=== PATIENT | male | born 1985 | race Caucasian/White ===

== ENCOUNTER 2023-07-29 13:56 | Emergency (ER) | payer OTHER, SELFPAY ==
[2023-07-29 14:05] VITALS: BP 165/98; PULSE 118; RESP 24; TEMP 37.8; O2SAT 100
--- NOTE | 2023-07-29 14:45 | ED.SKABFB ---
HPI - Skin/Abscess/Foreign Bdy General Chief complaint: Skin/Abscess/Foreign Body Stated complaint: Allergic Recartion/Chest Pain Time Seen by Provider: 07/29/23 14:53 Source: patient, family and RN notes reviewed History of Present Illness HPI narrative: 38 yo M presents to urgent care with complaints of lower lip pain and swelling. Pt states he was seen 3 days ago for flash gray in his eyes and lower lip. Pt is a fitter welder. Pt was seen at an ER and given eye gtts, tramadol, and Benadryl. Pt was seen at 2 other ERs yesterday and this morning for chest muscle spasms and states he has not had any relief. Pt's friend at side, states pt's lip has significantly gotten bigger today. Pt presents with pain with deep inhalation in his left upper chest and lower lip pain. Related Data Home Medications Medication Instructions Recorded Confirmed ciprofloxacin HCl 0.3 % eye drops drp 07/29/23 erythromycin 5 mg/gram (0.5 %) eye 07/29/23 ointment ketorolac 10 mg tablet mg 07/29/23 tobramycin 0.3 % eye drops drp 07/29/23 Allergies Allergy/AdvReac Type Severity Reaction Status Date / Time No Known Allergies Allergy Verified 07/29/23 14:35 Review of Systems Review of Systems: CONSTITUTIONAL: Denies fever, chills, or sweats. EYES: Denies visual changes, redness, or discharge. ENT: Denies otalgia and sore throat CARDIOVASCULAR: Left upper chest muscle spasms RESPIRATORY: SOB due to painful deep breaths GASTROINTESTINAL: Denies abdominal pain, nausea, vomiting, or diarrhea. GENITOURINARY: Denies dysuria or hematuria. SKIN: Denies rash or itching. MUSCULOSKELETAL: Denies back pain, joint pain, or myalgia. NEUROLOGIC: Denies headache, numbness, or weakness. Pertinent positives per HPI. PMFSH Comments At the time of my signature, I reviewed and agree with the nursing past medical, surgical, social, and family history. There is no relevant family history pertinent to the patient complaint. Exam Narrative: GENERAL: This is a well-nourished, well-developed patient, in no apparent distress. HEAD: normocephalic, atraumatic. EYES: Sclera clear/white. Vision is grossly intact. MOUTH: lower lip edematous, indurated, tender, erythremic, with exudate noted in inner lower lip EARS: External ears normal, auditory canals clear and without drainage, TMs normal without perforation. Hearing grossly intact. NOSE: External nose normal with no obvious nasal discharge, nares without redness, no rhinorrhea. NECK: Neck supple, non-tender without lymphadenopathy, masses or thyromegaly. CARDIOVASCULAR: Tachycardic RESPIRATORY: Clear but decreased, possibly due to lack of deep breathing during assessment. Breath sounds equal bilaterally. No wheezes, rales, or rhonchi. SKIN: warm, intact with no suspicious lesions or rash, good texture and turgor. NEURO: awake, alert, and oriented to person, place and time. There were no obvious focal neurologic abnormalities. Course Course Level of Care: Express Care Visit Vital Signs Vital signs: reviewed MDM - Skin/Abscess/Foreign Bdy MDM Narrative Medical decision making narrative: Discussed with pt and friend the need for Plastic's evaluation and possible IV Abx. Pt agrees to be transferred to [facility]. Spoke to Silas WALKER at [facility] ED who accepts pt. Pt going by private vehicle. Differential Diagnosis Differential diagnosis: Likely abscess of skin or subcutaneous tissue, allergic reaction to drug, cellulitis and other (burn) Critical Care Time Critical Care Time Critical Care Time: No Discharge Plan Discharge Clinical Impression: Abscess of skin or subcutaneous tissue Patient Disposition: Acute Care Hospital Condition: Stable Prescriptions: No Action ketorolac 10 mg tablet ciprofloxacin HCl 0.3 % drops erythromycin 5 mg/gram (0.5 %) ointment tobramycin 0.3 % drops Follow-up/Referrals: PHYSICIAN,ICE RINK ATTENDANT [Prim
== END 2023-07-29 15:00 | disposition short-term general hospital (02) ==
PROVIDERS: Emergency Provider Nurse Practitioner Family
DX: K13.0 Diseases of lips (principal)
CPT/HCPCS: 99212; G0463

== ENCOUNTER 2023-07-29 15:26 | Inpatient (IN) | payer OTHER, SELFPAY ==
[2023-07-29] VITALS (12 sets, daily range): BP systolic 139–158; BP diastolic 79–102; PULSE 110–121; RESP 18–39; TEMP 37.4–37.8; O2SAT 94–100
--- NOTE | ~2023-07-29 | CT_ITS ---
EXAMINATION: CT facial bones w con DATE: 07/29/2023 17:55 INDICATION: Lip abscess TECHNIQUE: Computed tomography (CT) of the facial bones and maxillofacial region was performed with 1 00 mL Omnipaque-350 intravenous contrast. Coronal reconstructions were obtained. Automated exposure c ontrol and iterative reconstruction technique were employed. The dose-length product was 394.12 mGy-c m. COMPARISON: None. FINDINGS: Bone alignment is normal. No fractures. Large dental caries with periapical abscess at the right maxi llary first molar with minimal associated mucosal thickening at the floor of the right maxillary sinu s. Additional dental caries involving the bilateral second and third mandibular molars in the bilater al third and left second mandibular molars in the left second mandibular bicuspids. Additional mild m ucosal thickening the posterior left ethmoid sinus. Bilateral middle ear cavities and visualized port ions of the mastoid air cells are clear. Orbits are normal. There is prominent soft tissue swelling a nd subcutaneous edema involving the lower lip and jaw. There is a region of decreased attenuation wit h lobular margins centered at the midline of the lower lip suggesting a region of phlegmonous change but without a well-defined enhancing peripheral wall to suggest a more organized abscess. The region of phlegmonous change measures approximately 3.3 cm left to right, 2.3 cm AP and 2.0 cm craniocaudall y. Likely reactive left submandibular lymphadenopathy. IMPRESSION: 1. Extensive cellulitis about the jaw and lower lip with 3.3 x 2.3 x 2.0 cm region of phlegmonous you nge at the midline of the lower lip but without a well-defined peripheral wall to suggest a more orga nized abscess. 2. Extensive dental disease. Reviewed, dictated and finalized at location A. LING MACHINE OPERATOR IMPRESSION: 1. Extensive cellulitis about the jaw and lower lip with 3.3 x 2.3 x 2.0 cm reg ion of phlegmonous change at the midline of the lower lip but without a well-de fined peripheral wall to suggest a more organized abscess. 2. Extensive dental disease.
[2023-07-29 16:09] LABS: Basophils Absolute Auto 0.1 K/mm3 (0.0-0.1); Basophils Percent Auto 0.3 % (0.2-1.2); Eosinophils Percent Auto 0.2 % (0-4.4); Hematocrit 39.7 % (42.0-52.0); Hemoglobin 12.7 g/dL (14.0-18.0); Immature Granulocyte Absolute 0.16 K/mm3 (0.00-0.031); Immature Granulocyte Percent A 0.7 % (0-0.5); Lymphocytes Absolute Auto 2.12 K/mm3 (0.9-3.2); Lymphocytes Percent Auto 9.6 % (18.3-44.2); Mean Corpuscular Hemoglobin 30.5 pg (26-34); Mean Corpuscular Volume 95.2 fl (80-100); Mean Platelet Volume 8.7 fl (7.4-10.4); Monocytes Percent Auto 8.9 % (2.6-8.5); Neutrophils Absolute Auto 17.8 K/mm3 (1.3-6.7); Neutrophils Percent Auto 80.3 % (45.5-73.1); Platelet Count Result 306 k/mm3 (150-375); Red Blood Count 4.17 M/mm3 (4.6-6.20); Red Cell Distribution Width 13.2 % (11.5-14.5); White Blood Count 22.1 K/mm3 (4.5-10.0)
[2023-07-29 16:18] LABS: Lactic Acid Reflex 1.9 mmol/L (0.7-2.0)
[2023-07-29 16:26] LABS: Alanine Aminotransferase 67 U/L (6-50); Albumin Level 4.7 g/dL (3.5-5.1); Alkaline Phosphatase 109 U/L (38-126); Anion Gap 13 mmol/L (8-16); Aspartate Amino Transferase 38 U/L (17-59); Bilirubin,Total 1.3 mg/dL (0.2-1.3); Blood Urea Nitrogen 9 mg/dL (9-20); Calcium 9.5 mg/dL (8.4-10.2); Carbon Dioxide 26 mmol/L (22-30); Chloride 96 mmol/L (98-107); Estimated CRCL calculation 129 ml/min; Estimated Glomerular Filt Rate > 60; Glucose 131 mg/dL (65-110); Sodium 135 mmol/L (137-145)
[2023-07-29 16:33] LABS: CRP 21.3 mg/dL (<1.0)
[2023-07-29] MEDS: SODIUM CHLORIDE 0.9% IV 1,000 ML 999 ML IV CONT ×2 (17:24→18:26)
[2023-07-29] MEDS: MORPHINE SULFATE (*CRX) 4 MG/ML INJ IV PUSH (17:25)
[2023-07-29] MEDS: ONDANSETRON INJ 4 MG/2 ML VIAL IV PUSH (17:25)
--- NOTE | 2023-07-29 17:41 | ED.GENADULT ---
HPI - General Adult General Chief complaint: Skin/Abscess/Foreign Body Stated complaint: lip abscess Time Seen by Provider: 07/29/23 17:11 Source: patient Mode of arrival: ambulatory Limitations: no limitations History of Present Illness HPI narrative: this is a 38-year-old male who presents to the ED with chief complaint of left lower Lip swelling for the past week. he was referred over from urgent care for possible abscess. He knows that he had a flash burn welding injury to the eye recently but no specific injury to the mouth. States he was seen multiple times for the swelling but was never given any antibiotics. Today he states the pain is drastically decreased ankle swelling spreading to the chin and face. States he has had a fever. Denies trouble swallowing or trismus or drooling. Admits to meth use 2 weeks ago but denies IV drug abuse Related Data Home Medications Medication Instructions Recorded Confirmed ciprofloxacin HCl 0.3 % eye drops drp 07/29/23 erythromycin 5 mg/gram (0.5 %) eye 07/29/23 ointment ketorolac 10 mg tablet mg 07/29/23 tobramycin 0.3 % eye drops drp 07/29/23 Allergies Allergy/AdvReac Type Severity Reaction Status Date / Time No Known Allergies Allergy Verified 07/29/23 14:35 Review of Systems Review of Systems: All systems as dictated in HPI Exam Narrative: GENERAL: appears in pain. Diaphoretic. HEAD: Normocephalic, atraumatic. EYES: PERRLA and EOMI. ENT: Nares clear, no rhinorrhea or epistaxis. Mucous membranes moist. Oropharynx without tonsillar hypertrophy exudate or other lesions. NECK: Supple. No adenopathy or masses. CHEST: No respiratory distress. Clear to auscultation. No wheezes rales or rhonchi HEART: Tachycardic rate and regular rhythm. No murmur heard. Normal peripheral pulses. ABDOMEN: Soft, nontender, nondistended, normal active bowel sounds. MSK: Normal range of motion. No edema. SKIN: Warm, dry, no rash. NEURO: Alert and oriented x3. No focal deficits. PSYCH: Normal mood and affect. Course Course Emergency Course: Consult [id number]: Spoke with Dr. Collins (Plastic surgery), recommends starting broad spectrum abx and he will see the patient tomorrow. Vital Signs Vital signs: Vital Signs Temperature 99.4 F 07/29/23 15:34 Pulse Rate 120 H 07/29/23 15:34 Respiratory Rate 18 07/29/23 15:34 Blood Pressure 145/102 H 07/29/23 15:34 Pulse Oximetry 100 07/29/23 15:34 Temperature 99.4 F 07/29/23 15:34 Pulse Rate 117 H 07/29/23 18:31 Respiratory Rate 26 H 07/29/23 18:31 Blood Pressure 152/101 H 07/29/23 18:31 Pulse Oximetry 100 07/29/23 18:31 Medical Decision Making MDM Narrative Medical decision making narrative: this is a 38-year-old male who presents to the ED with chief complaint of left lower lip swelling for the past week. Vitals upon arrival showed tachycardia with elevated temperature but blood pressures are stable. He is a drug user. Exam shows marked swelling, erythema and tenderness to the lower lip with swelling to the chin and left cheek as well. THere is slight drainage to the mucosa. WOund culture. sent. he is septic so sepsis protocol ordered. Labwork shows WBC 22.1, CRP 21, however lactic is normal. BLood culture sent as well. CT facial:1. Extensive cellulitis about the jaw and lower lip with 3.3 x 2.3 x 2.0 cm region of phlegmonous change at the midline of the lower lip but without a well-defined peripheral wall to suggest a more organized abscess. 2. Extensive dental disease. . Discussed with Dr. Collins (plastics) who will consult on the patient. Spoke with Dr. Good (hospitalist): recommends admission to med/surg. VAnco, zosyn, and fluids given here. Pain and nausea medications given as well. HR is improving upon admission and patient remains with stable BP. He is agreeable with the plan for admission. Vital Signs Vital Signs: Vital Signs Temperatu
[2023-07-29] MEDS: PIPERACILLN/TAZ 3.375GM/NS50ML 3.375 GM/50 ML BAG IVPB ×2 (18:07→23:35)
[2023-07-29] MEDS: VANCOMYCIN 1,250 MG/NS 250 ML 1,250 MG/250 ML BAG 166.67 MG IVPB (18:26)
[2023-07-29] MEDS: HYDROmorphone HCL INJ (*CRX) 1 MG/ML SYR 0.5 MG IV PUSH ×2 (18:46→23:35)
--- NOTE | 2023-07-29 19:07 | PC.NURSE ---
Assumed care of pt from RAFAEL Reid at this time.
--- NOTE | 2023-07-29 19:39 | PM.IMHP ---
H&P: HPI History of Present Illness Date/Time: 07/29/23 19:39 Chief Complaint: Lip infection Narrative: This 38-year-old male patient with no known significant past medical history related to today's admitting complaint presents to the emergency room complaints of having lip swelling for the past week. Patient endorses status provider that he had a flash burn from welding to his eyes now 7 days ago and was started on eye drops. The same day he began having pain, swelling, redness and hardness to the left lower lip. He thought he was having an allergic reaction from the eye drops running down on to his lip. He is unsure what eyedrops he was given that the EMR reflect erythromycin ointment. Over the course of the past week patient's eyes have started to feel better, however the area on his left lower lip has continued to swell, become hard and indurated as well as red and extremely painful. Patient developed a fever yesterday and has been running it consistently now for 2 days. He has presented to a total of 4 Hospital and/or medical facilities within the past 2 days including [facility] and [place] urgent care and denies any diagnosis of infection or any antibiotic administration. Here in the emergency room he was evaluated with labs and imaging. His labs are significant for an elevated white blood cell count of 22.1 with a left shift, CRP of 21.3, normal lactic acid of 1.9, unremarkable metabolic panel and CT of the face demonstrates an extensive cellulitis around the jaw and lower lip with a 3.3 x 2.3 x 2.0 cm region of phlegmonous changes at the midline lower lip without well-defined wall to suggest an organized abscess. There is also identified extensive dental disease visible on CT scan. Patient was started on vancomycin and Zosyn in the emergency room as he does meet sepsis criteria with abnormal labs as well as current tachycardia and consult was placed to plastics, Dr. Biggs, who advised to treat pain, give antibiotics and he will evaluate the patient morning. Patient does endorse an admit to using methamphetamine and last used 2 weeks ago. He denies any IV drug use. His tetanus shot is up-to-date within the past year. He denies any acute trauma or injury to the mouth and denies using buccal tobacco. Review of Systems Review of Systems: All systems reviewed & are unremarkable except as noted in HPI and below PMFSH Past Medical History Medical History (Updated 07/29/23 @ 19:52 by HAIR Mckeon) Substance abuse Substance Use Substance use type: amphetamines Counseling given: No Meds Home Medications and Allergies Home Medications Medication Instructions Recorded Confirmed Type ciprofloxacin HCl 0.3 % eye drops drp 07/29/23 History erythromycin 5 mg/gram (0.5 %) eye 07/29/23 History ointment ketorolac 10 mg tablet mg 07/29/23 History tobramycin 0.3 % eye drops drp 07/29/23 History Allergies Allergy/AdvReac Type Severity Reaction Status Date / Time No Known Allergies Allergy Verified 07/29/23 14:35 Vital Signs Vital Signs - 24 hr 07/29/23 15:34 07/29/23 17:18 07/29/23 17:30 Temperature 99.4 F Pulse Rate 120 H 119 H 121 H Respiratory Rate 18 22 H 27 H Blood Pressure 145/102 H Pulse Oximetry 100 100 94 07/29/23 18:23 07/29/23 18:30 07/29/23 18:31 Temperature Pulse Rate 115 H 119 H 117 H Respiratory Rate 35 H 39 H 26 H Blood Pressure 152/101 H Pulse Oximetry 96 96 100 Exam Const: General: in distress and uncomfortable Other: Acute pain distress HENMT: Face/Nose/Sinus: Normal nares present and no epistaxis Mouth: Yes Abnormal oral and palatal mucosa present erythematous (Left lower lip), edematous (Left lower lip with induration and tight edema), white patches (Inside of lower lip oral mucosa) and ulceration Other: Areas of dental decay are present within the mouth. Eyes: General: appearance gary
[2023-07-29] MEDS: HYDROcodone/acetaminophen (*CRX) 5-325 MG TABLET 1 TAB PO (20:22)
[2023-07-29] MEDS: ACETAMINOPHEN 325 MG TABLET 650 MG PO (20:22)
[2023-07-29] MEDS: SODIUM CHLORIDE 0.9% IV 1,000 ML 125 ML IV CONT (21:21)
--- NOTE | 2023-07-29 22:02 | ADMGEN ---
This patient, Blayne Cameron, was admitted to [facility] Surg Room 328-01 at 22:02. Patient/family oriented to hospital policies and general routines including ID bracelet, bed and alarms, visiting hours, pain management, procedures, bathroom and other care routines, personal items, smoking policy, room service/diet, and visiting hours. Information on how to activate the Rapid Response Team has been discussed. Patient/Family are encouraged to report perceived risks to care and to ask questions if they do not understand what they are told or what they should do.
[2023-07-29] MEDS: MORPHINE SULFATE (*CRX) 2 MG/ML INJ IV PUSH (22:17)
--- NOTE | 2023-07-29 22:43 | PC.NURSE ---
pt having difficulty staying awake during admission process, however admission has been completed to the best of my knowledge. pt c/o muscle spasms around his ribs resulting in 9/10 pain.
[2023-07-30] VITALS (12 sets, daily range): BP systolic 125–141; BP diastolic 79–114; PULSE 100–122; RESP 16–22; TEMP 35.7–37.6; O2SAT 95–100
[2023-07-30] MEDS: HYDROcodone/acetaminophen (*CRX) 5-325 MG TABLET 1 TAB PO ×2 (01:10→22:15)
[2023-07-30] MEDS: ONDANSETRON INJ 4 MG/2 ML VIAL IV PUSH (02:19)
[2023-07-30] MEDS: MORPHINE SULFATE (*CRX) 2 MG/ML INJ IV PUSH ×4 (02:19→23:11)
[2023-07-30] MEDS: HYDROmorphone HCL INJ (*CRX) 1 MG/ML SYR 0.5 MG IV PUSH (06:05)
[2023-07-30] MEDS: PIPERACILLN/TAZ 3.375GM/NS50ML 3.375 GM/50 ML BAG IVPB ×4 (06:07→23:11)
[2023-07-30 07:11] LABS: Estimated CRCL calculation 130 ml/min; Estimated Glomerular Filt Rate > 60
[2023-07-30 08:01] LABS: Alanine Aminotransferase 50 U/L (6-50); Albumin Level 3.9 g/dL (3.5-5.1); Alkaline Phosphatase 119 U/L (38-126); Anion Gap 10 mmol/L (8-16); Aspartate Amino Transferase 27 U/L (17-59); Bilirubin,Total 1.7 mg/dL (0.2-1.3); Blood Urea Nitrogen 5 mg/dL (9-20); Calcium 9.2 mg/dL (8.4-10.2); Carbon Dioxide 25 mmol/L (22-30); Chloride 101 mmol/L (98-107); Estimated CRCL calculation 130 ml/min; Estimated Glomerular Filt Rate > 60; Glucose 126 mg/dL (65-110); Potassium 3.9 mmol/L (3.4-5.0); Sodium 136 mmol/L (137-145)
[2023-07-30 08:03] LABS: Basophils Absolute Auto 0.1 K/mm3 (0.0-0.1); Basophils Percent Auto 0.4 % (0.2-1.2); Eosinophils Percent Auto 0.2 % (0-4.4); Hematocrit 37.9 % (42.0-52.0); Hemoglobin 12.2 g/dL (14.0-18.0); Immature Granulocyte Absolute 0.36 K/mm3 (0.00-0.031); Immature Granulocyte Percent A 1.8 % (0-0.5); Lymphocytes Absolute Auto 1.71 K/mm3 (0.9-3.2); Lymphocytes Percent Auto 8.7 % (18.3-44.2); Mean Corpuscular HGB Conc 32.2 g/dl (32-36); Mean Corpuscular Hemoglobin 30.6 pg (26-34); Mean Platelet Volume 9.3 fl (7.4-10.4); Monocytes Absolute Auto 2.2 K/mm3 (0.1-0.6); Monocytes Percent Auto 11.2 % (2.6-8.5); Neutrophils Absolute Auto 15.3 K/mm3 (1.3-6.7); Neutrophils Percent Auto 77.7 % (45.5-73.1); Platelet Count Result 313 k/mm3 (150-375); Red Blood Count 3.99 M/mm3 (4.6-6.20); Red Cell Distribution Width 13.1 % (11.5-14.5); White Blood Count 19.8 K/mm3 (4.5-10.0)
--- NOTE | 2023-07-30 08:05 | WPDCN ---
Assessment and Plan Assessment and plan (1) Abscess of lip: Code(s): K13.0 - Diseases of lips Status: Acute Assessment and Plan: 38yo male with signifiacnt lower lip abscess and cellulitis. ct images reviwed and agree with report discussed with patient's parents my recommendation for I&D and continutation of IV abx per ID. discussed , benefits and alternatives to procedure as well as post-op expectations and risks including but not limited to bleeding infection, recurrence, undesireable cosmetic appearance, no change/worsening of symptoms. patient's mother signed consent wishing to proceed Plan: 1) will plan on lower lip I&D today. (2) Sepsis: Qualifiers: Sepsis acute organ dysfunction status: without acute organ dysfunction Sepsis type: sepsis due to unspecified organism Qualified Code(s): A41.9 - Sepsis, unspecified organism Code(s): A41.9 - Sepsis, unspecified organism Status: Acute HPI Data of Consult Date/Time: 07/30/23 08:05 Requesting Physician: Kayli Gee MD Primary Care Provider: [facility] PHYSICIAN Consult Narrative Narrative: Blayne Cameron is a 38 year old male who presented to ER last night for lower lip swelling, pain and facial erythema admitted for abscess and cellulitis. Plastics consulted for possible abscess I&D pt notes abscess began self draining 1-2 days ago unable to obtain history from patient, only get history from parents and significant other as pt has been mosty unarousable for 3 attempted visits since 7AM. Review of Systems Review of Systems: unable to obtain given pt [facility] Past Medical History Medical History (Updated 07/30/23 @ 00:01 by Beto Mcginnis) Substance abuse Social History Social History Smoking packs per day: 1 Smoking cigarettes per day: 20.0 Years smoked: 20 Smoking pack-years: 20.00 Smoking status: Current every day smoker Tobacco type: cigarettes Alcohol intake: former Substance use: current Substance use type: amphetamines Lack of Transportation: No Lack of Food: Never True Current Housing: I Have Housing Concerned About Future Housing: No Difficulty Paying Gas/Electric Bills: No Difficulty Paying for Meds: No Currently Unemployed: No Education: Decline to Answer Difficulty w/ Childcare or Family Care: No Spiritual care concerns: No Meds Home Medications and Allergies Home Medications Medication Instructions Recorded Confirmed Type ciprofloxacin HCl 0.3 % eye drops 1 drp EACH EYE DAILY 07/29/23 07/29/23 History erythromycin 5 mg/gram (0.5 %) eye 1 applic EACH EYE TID 07/29/23 07/29/23 History ointment ketorolac 10 mg tablet 10 mg PO Q6H PRN moderate to 07/29/23 07/29/23 History severe pain tobramycin 0.3 % eye drops 1 drp EACH EYE DAILY 07/29/23 07/29/23 History Allergies Allergy/AdvReac Type Severity Reaction Status Date / Time No Known Allergies Allergy Verified 07/29/23 14:35 Vital Signs Vital Signs - 24 hr 07/29/23 15:34 07/29/23 17:18 07/29/23 17:30 Temperature 37.4 C Pulse Rate 120 H 119 H 121 H Respiratory Rate 18 22 H 27 H Blood Pressure 145/102 H Pulse Oximetry 100 100 94 Oxygen Delivery 07/29/23 18:23 07/29/23 18:30 07/29/23 18:31 Temperature Pulse Rate 115 H 119 H 117 H Respiratory Rate 35 H 39 H 26 H Blood Pressure 152/101 H Pulse Oximetry 96 96 100 Oxygen Delivery 07/29/23 19:35 07/29/23 20:15 07/29/23 20:51 Temperature Pulse Rate 119 H 114 H 110 H Respiratory Rate 24 H 26 H 19 Blood Pressure 157/86 H 158/95 H 139/81 Pulse Oximetry 94 100 96 Oxygen Delivery 07/29/23 21:30 07/29/23 22:25 07/29/23 22:30 Temperature 37.8 C H Pulse Rate 110 H 111 H Respiratory Rate 25 H 20 20 Blood Pressure 148/79 H 145/85 H Pulse Oximetry 95 97 Oxygen Delivery Room Air 07/30/23 04:00 07/30/23 08:00 Temperature 37.1 C 36.7 C Pulse Rate 115 H 122 H
[2023-07-30] MEDS: LORazepam INJ (*CRX) 2 MG/ML VIAL IV PUSH (08:25)
[2023-07-30] MEDS: SODIUM CHLORIDE 0.9% IV 1,000 ML 100 ML IV CONT (08:30)
[2023-07-30] MEDS: VANCOMYCIN 1,250 MG/NS 250 ML 1,250 MG/250 ML BAG 166.67 MG IVPB ×2 (08:30→20:14)
[2023-07-30] MEDS: THIAMINE HCL 200 MG/2 ML VIAL 100 MG IV PUSH (08:32)
--- NOTE | 2023-07-30 08:49 | P.OP_ITS ---
Procedure Note - Detailed Date of Procedure 07/30/23 Pre-op Diagnosis Lip Abscess, Sepsis Post-op Diagnosis Same Procedure Performed lower lip abscess I&D Surgeon Loeksh Collins MD Anesthesia General Description of Procedure pt. seen, marked and mother gave consent. taken to OR on stretcher in supine position. time out performed with anesthesia, surgeon and staff agreeing on patient's name, site and surgery to be performed. SCDs placed on LEs and inflated. patient alread receive IV abx. After general anesthesia was administered the face was prepped and draped in sterile fashion. I proceeded with injection of 4cc 1%lido and 0.5%marcaine plain for local. a 15-blade was used to make an incision over area of tense fluctuance on mucosal side of lower lip which was noted to be notably damaged from the infection an essentially tore upon with further manipulation. Spread with delroy clamp. Cult ure swab taken. this inner opening connected with external opening as well. Irrigation. partial light packing from external wound into lip with iodoform. pressure dressing. vaseline on unreparable internal mucosa pt. tolerated well and awaken from anesthesia and transferred to recovery in stable condition and to be transferred back to floor with care and abx per primary. ebl: 2cc complications: none Urine Output 500 [facility] Billing Surgery - Charge Forward: Surgery Billing ([id number])
--- NOTE | 2023-07-30 08:49 | WPDHPUPDATE1 ---
History and Physical Update Update Date/Time: 07/30/23 08:49 Patient seen and examined in pre-operative holding area. No interval change in medical history or symptoms and patient remains mostly unarousable. patient's mother Continues to desire to proceed with lower lip abscess I&D . Reviewed benefits and alternatives to procedure as well as risks, alternatives, benefits, post-op expectations and risks including but not limited to bleeding, infection, injury to nerve/vessel, undesireable cosmetic appearance, no change or worsening of symptoms. Patient's mother stated understanding and signed the consent form wishing to proceed.
--- NOTE | 2023-07-30 11:29 | PM.IMPN ---
Progress Note: A&P Assessment and Plan (1) Sepsis: Qualifiers: Sepsis acute organ dysfunction status: without acute organ dysfunction Sepsis type: sepsis due to unspecified organism Qualified Code(s): A41.9 - Sepsis, unspecified organism Code(s): A41.9 - Sepsis, unspecified organism Status: Acute Assessment and Plan: On admission patient meets sepsis criteria with tachycardia, left-shifted white count of 22.1 with elevated absolute neutrophils, and evidence of documented site of infection per CT scan. Patient initial dosed on vancomycin and Zosyn in the ER after blood cultures were obtained, and will be continued on the floor. P.r.n. pain medications ordered. Plastics, Dr. Biggs was consulted and plans on doing I and D later this afternoon. IV fluids of normal saline at 100 per hour ordered (2) Abscess of skin or subcutaneous tissue: Qualifiers: Site of cutaneous abscess: face Qualified Code(s): L02.01 - Cutaneous abscess of face Code(s): L02.91 - Cutaneous abscess, unspecified Status: Inactive Assessment and Plan: See plan for problem 1. Etiology possibly due to extensive dental disease, poor dentition, ingrown hair, skin picking Will begin mouth rinses with chlorhexidine gluconate. (3) Substance abuse: Code(s): F19.10 - Other psychoactive substance abuse, uncomplicated Status: Acute Assessment and Plan: As stated per patient, methamphetamine use with last use 2 weeks ago It appears that patient is actively withdrawing. Urine drug screen ordered, if positive for methamphetamine patient has used more frequently than 2 weeks ago. Per up-to-date recommendations will order 2 mg Ativan p.r.n. q.4 hours for withdrawal symptoms. IV fluids continue Subjective Date/time seen: 07/30/23 11:29 Interval history: Patient was sleeping and not willing to wake up to talk with me. Talked to patient's mother about plan of action. Plastic surgery planning on I and D later this afternoon. Exam Narrative: GENERAL: Comfortable, no acute distress HENMT: moist mucous membranes, abscess between patient's lower lip and chin with surrounding induration and swelling, skin is erythematous and warm to the touch, abscess not actively draining EYES: EOM intact b/l NECK: cervical and mandibular lymphadenopathy RESPIRATORY: clear to auscultation, increased respirations. CARDIO: tachycardia, regular rhythm GI: soft, nontender, bowel sounds present SKIN: no rashes EXTREMITIES: no edema, redness or tenderness Objective Data Vital Signs Vital Signs: Vital Signs - 24 hr 07/29/23 15:34 07/29/23 17:18 07/29/23 17:30 Temperature 99.4 F Pulse Rate 120 H 119 H 121 H Respiratory Rate 18 22 H 27 H Blood Pressure 145/102 H Pulse Oximetry 100 100 94 Oxygen Delivery 07/29/23 18:23 07/29/23 18:30 07/29/23 18:31 Temperature Pulse Rate 115 H 119 H 117 H Respiratory Rate 35 H 39 H 26 H Blood Pressure 152/101 H Pulse Oximetry 96 96 100 Oxygen Delivery 07/29/23 19:35 07/29/23 20:15 07/29/23 20:51 Temperature Pulse Rate 119 H 114 H 110 H Respiratory Rate 24 H 26 H 19 Blood Pressure 157/86 H 158/95 H 139/81 Pulse Oximetry 94 100 96 Oxygen Delivery 07/29/23 21:30 07/29/23 22:25 07/29/23 22:30 Temperature 100.0 F H Pulse Rate 110 H 111 H Respiratory Rate 25 H 20 20 Blood Pressure 148/79 H 145/85 H Pulse Oximetry 95 97 Oxygen Delivery Room Air 07/30/23 04:00 07/30/23 08:00 07/30/23 08:00 Temperature 98.8 F 98.1 F Pulse Rate 115 H 122 H Respiratory Rate 20 18 Blood Pressure 125/93 H 135/114 H 135/114 H Pulse Oximetry 96 99 Oxygen Delivery 07/30/23 08:00 Temperature Pulse Rate 122 H Respiratory Rate 18 Blood Pressure Pulse Oximetry 99 Oxygen Delivery Room Air Intake/Output Intake/Output: Intake & Output 07/27/23 07/28/23 07/29/23 07/30/23 23:59 23:59 23:
[2023-07-30] MEDS: CHLORHEXIDINE GLUCONATE 0.12% ORAL RINSE 473 ML BTL (*BKC) 15 ML SWISH/SPIT ×2 (12:24→17:13)
[2023-07-30 13:28] LABS: Amphetamine Screen Urine Negative (Negative); Barbiturate Screen Urine Negative (Negative); Benzodiazepines Screen Urine Negative (Negative); Cannabinoid Screen Urine Positive (Negative); Cocaine Screen Urine Negative (Negative); Methadone Screen Urine Negative (Negative); Opiate Screen Urine Positive (Negative); Phencyclidine Screen Urine Negative (Negative)
[2023-07-30 13:58] LABS: Glucose Point of Care 113 mg/dl (65-105)
[2023-07-30] MEDS: LACTATED RINGERS 1,000 ML 30 ML IV CONT (14:05)
--- NOTE | 2023-07-30 14:37 | WPDANESEPPF ---
Anes - Initial Pre Proc Eval Procedure: Operation Date: 07/30/23 14:30 Proposed Procedures p Incision and Debridement Lower Lip Abscess - Lokesh Collins MD Date/Time: 07/30/23 14:37 Surgeon: Kayli Gee MD Pre Op Diagnosis: Lip Abscess, Sepsis Patient Data Age: 38 Gender: M Height: 1.78 m Weight: 80.2 kg Last Vital Signs Temp 37.6 C 07/30/23 14:03 Pulse 116 H 07/30/23 14:03 Resp 20 07/30/23 14:03 BP 141/79 H 07/30/23 14:03 Pulse Ox 97 07/30/23 14:03 O2 Del Method Room Air 07/30/23 14:03 Allergies Allergy/AdvReac Type Severity Reaction Status Date / Time No Known Allergies Allergy Verified 07/29/23 14:35 Home Medications Medication Instructions Recorded Confirmed Type ciprofloxacin HCl 0.3 % eye drops 1 drp EACH EYE DAILY 07/29/23 07/29/23 History erythromycin 5 mg/gram (0.5 %) eye 1 applic EACH EYE TID 07/29/23 07/29/23 History ointment ketorolac 10 mg tablet 10 mg PO Q6H PRN moderate to 07/29/23 07/29/23 History severe pain tobramycin 0.3 % eye drops 1 drp EACH EYE DAILY 07/29/23 07/29/23 History Laboratory Tests 07/29/23 07/30/23 07/30/23 16:01 06:26 06:30 WBC 22.1 H K/mm3 19.8 H K/mm3 (4.5-10.0) (4.5-10.0) RBC 4.17 L M/mm3 3.99 L M/mm3 (4.6-6.20) (4.6-6.20) Hgb 12.7 L g/dL 12.2 L g/dL (14.0-18.0) (14.0-18.0) Hct 39.7 L % 37.9 L % (42.0-52.0) (42.0-52.0) MCV 95.2 fl 95.0 fl (80-100) (80-100) MCH 30.5 pg 30.6 pg (26-34) (26-34) MCHC 32.0 g/dl 32.2 g/dl (32-36) (32-36) RDW 13.2 % 13.1 % (11.5-14.5) (11.5-14.5) Plt Count 306 k/mm3 313 k/mm3 (150-375) (150-375) MPV 8.7 fl 9.3 fl (7.4-10.4) (7.4-10.4) Immature Gran % (Auto) 0.7 H % 1.8 H % (0-0.5) (0-0.5) Neut % (Auto) 80.3 H % 77.7 H % (45.5-73.1) (45.5-73.1) Lymph % (Auto) 9.6 L % 8.7 L % (18.3-44.2) (18.3-44.2) Ocean % (Auto) 8.9 H % 11.2 H % (2.6-8.5) (2.6-8.5) Eos % (Auto) 0.2 % 0.2 % (0-4.4) (0-4.4) Baso % (Auto) 0.3 % 0.4 % (0.2-1.2) (0.2-1.2) Lymph # (Auto) 2.12 K/mm3 1.71 K/mm3 (0.9-3.2) (0.9-3.2) Ocean # (Auto) 2.0 H K/mm3 2.2 H K/mm3 (0.1-0.6) (0.1-0.6) Eos # (Auto) 0.0 K/mm3 0.0 K/mm3 (0-0.3) (0-0.3) Baso # (Auto) 0.1 K/mm3 0.1 K/mm3 (0.0-0.1) (0.0-0.1) Abs Immat Gran (auto) 0.16 H K/mm3 0.36 H K/mm3 (0.00-0.031) (0.00-0.031) Absolute Neuts (auto) 17.8 H K/mm3 15.3 H K/mm3 (1.3-6.7) (1.3-6.7) Absolute Nucleated RBC 0.0 K/mm3 0.0 K/mm3 (0.0-0.012) (0.0-0.012) Nucleated RBC % 0.0 % 0.0 % (0.0-0.2) (0.0-0.2) Sodium 135 L mmol/L 136 L mmol/L (137-145) (137-145) Potassium 4.0 mmol/L 3.9 mmol/L (3.4-5.0) (3.4-5.0) Chloride 96 L mmol/L 101 mmol/L (98-107) (98-107) Carbon Dioxide 26 mmol/L 25 mmol/L (22-30) (22-30) Anion Gap 13 mmol/L 10 mmol/L (8-16) (8-16) BUN 9 mg/dL 5 L mg/dL (9-20) (9-20) Creatinine 0.70 mg/dL 0.70 mg/dL 0.70 mg/dL (0.7-1.3) (0.7-1.3) (0.7-1.3) Estim Creat Clear Calc 129 ml/min 130 ml/min 130 ml/min Estimated GFR > 60 > 60 > 60 (59 - ) (59 - ) (59 - ) Glucose 131 H mg/dL 126 H mg/dL (65-110) (65-110) POC Capillary Glucose Lactic Acid 1.9 mmol/L (0.7-2.0) Calcium 9.5 mg/dL 9.2 mg/dL (8.4-10.2) (8.4-10.2) Total Bilirubin 1.3 mg/dL 1.7 H mg/dL (0.2-1.3) (0.2-1.3) AST 38 U/L 27 U/L (17-59) (17-59) ALT 67 H U/L 50 U/L (6-50) (6-50) Alkaline Phosphatase 109 U/L 119 U/L (38-126) (38-126) C-Reactive Protein 21.3 H mg/dL (<1.0) Total Protein 8.0 g/dL 8.0 g/dL (6.3-8.2) (6.3-8.2) Albumin 4.7 g/dL 3.9 g/dL (3.5-5.1) (3.5-5.1) Urine Opiates Screen Urine Methadone Screen
[2023-07-30] MEDS: LIDOCAINE HCL 1% LOCAL INJ 10 ML VIAL 3 ML INFILTRATE (15:08)
[2023-07-30] MEDS: HYDROmorphone HCL INJ (*CRX) 1 MG/ML SYR 0.25 MG IV PUSH ×4 (15:38→15:53)
--- NOTE | 2023-07-30 17:05 | PC.NURSE ---
No straws per Dr Collins
[2023-07-30] MEDS: chlordiazePOXIDE (*CRX) 25 MG CAPSULE PO (22:15)
[2023-07-31] VITALS (7 sets, daily range): BP systolic 118–141; BP diastolic 73–93; PULSE 96–114; RESP 16–20; TEMP 35.9–37.7; O2SAT 97–100
[2023-07-31] MEDS: MORPHINE SULFATE (*CRX) 2 MG/ML INJ IV PUSH ×3 (03:08→11:05)
[2023-07-31] MEDS: HYDROcodone/acetaminophen (*CRX) 5-325 MG TABLET 1 TAB PO ×4 (03:44→22:09)
[2023-07-31] MEDS: PIPERACILLN/TAZ 3.375GM/NS50ML 3.375 GM/50 ML BAG IVPB ×3 (05:06→17:22)
[2023-07-31 07:02] LABS: Basophils Absolute Auto 0.1 K/mm3 (0.0-0.1); Basophils Percent Auto 0.5 % (0.2-1.2); Eosinophils Absolute Auto 0.2 K/mm3 (0-0.3); Eosinophils Percent Auto 1.2 % (0-4.4); Hematocrit 38.7 % (42.0-52.0); Hemoglobin 12.5 g/dL (14.0-18.0); Immature Granulocyte Absolute 0.12 K/mm3 (0.00-0.031); Immature Granulocyte Percent A 0.7 % (0-0.5); Lymphocytes Absolute Auto 2.06 K/mm3 (0.9-3.2); Lymphocytes Percent Auto 12.4 % (18.3-44.2); Mean Corpuscular HGB Conc 32.3 g/dl (32-36); Mean Corpuscular Hemoglobin 30.6 pg (26-34); Mean Corpuscular Volume 94.9 fl (80-100); Mean Platelet Volume 8.8 fl (7.4-10.4); Monocytes Absolute Auto 2.1 K/mm3 (0.1-0.6); Monocytes Percent Auto 12.4 % (2.6-8.5); Neutrophils Absolute Auto 12.1 K/mm3 (1.3-6.7); Neutrophils Percent Auto 72.8 % (45.5-73.1); Platelet Count Result 345 k/mm3 (150-375); Red Blood Count 4.08 M/mm3 (4.6-6.20); White Blood Count 16.7 K/mm3 (4.5-10.0)
[2023-07-31 07:14] LABS: Alanine Aminotransferase 42 U/L (6-50); Albumin Level 3.9 g/dL (3.5-5.1); Alkaline Phosphatase 140 U/L (38-126); Anion Gap 11 mmol/L (8-16); Aspartate Amino Transferase 26 U/L (17-59); Bilirubin,Total 1.2 mg/dL (0.2-1.3); Blood Urea Nitrogen 10 mg/dL (9-20); Calcium 9.3 mg/dL (8.4-10.2); Carbon Dioxide 28 mmol/L (22-30); Chloride 99 mmol/L (98-107); Estimated CRCL calculation 93 ml/min; Estimated Glomerular Filt Rate > 60; Glucose 123 mg/dL (65-110); Potassium 3.8 mmol/L (3.4-5.0); Sodium 138 mmol/L (137-145)
[2023-07-31 07:31] LABS: Vancomycin Trough 6.4 ug/mL (10.0-20.0)
[2023-07-31 07:45] LABS: Glucose Point of Care 128 mg/dl (65-105)
[2023-07-31] MEDS: THIAMINE HCL 200 MG/2 ML VIAL 100 MG IV PUSH (08:16)
[2023-07-31] MEDS: CHLORHEXIDINE GLUCONATE 0.12% ORAL RINSE 473 ML BTL (*BKC) 15 ML SWISH/SPIT ×2 (08:19→17:30)
[2023-07-31] MEDS: SODIUM CHLORIDE 0.9% IV 1,000 ML 100 ML IV CONT (08:24)
[2023-07-31 09:06] LABS: CRP 35.8 mg/dL (<1.0)
--- NOTE | 2023-07-31 09:41 | P.PNIM_ITS ---
Progress Note: A&P Assessment and Plan (1) Sepsis: Qualifiers: Sepsis acute organ dysfunction status: without acute organ dysfunction Sepsis type: sepsis due to unspecified organism Qualified Code(s): A41.9 - S epsis, unspecified organism Code(s): A41.9 - Sepsis, unspecified organism Status: Acute Assessment and Plan: * On admission patient meets sepsis criteria with tachycardia, leukocytosis of 22.1 with elevated absolute neutrophils, and evidence of documented site of infection * Continue with IV vancomycin Zosyn while awaiting culture results * Continue gentle IV fluids until better tolerating p.o. intake * Blood cultures are pending, negative to date * WBC improved to 16.7 today * He is afebrile with mild tachycardia (2) Abscess of skin or subcutaneous tissue: Qualifiers: Site of cutaneous abscess: face Qualified Code(s): L02.01 - Cutaneous abscess of face Code(s): L02.91 - Cutaneous abscess, unspecified Status: Inactive Assessment and Plan: * Etiology possibly due to extensive dental disease, poor dentition, ingrown hair, skin picking * Underwent incision and drainage of lower lip abscess on 07/30/[address] Collins. He tolerated this procedure well * Packing became removed from the external wound overnight; appreciate input from Dr. Collins regarding wound care recommendations * Abscess culture with preliminary growth of Staph aureus; await final culture results. Continue IV antibiotics as above * Intraoperative cultures collected are pending at this time * Continue mouth rinses with chlorhexidine gluconate. * Continue analgesics as needed for pain control * CRP is elevated, increased to 35.8 today. Continue to trend * Continue soft and bite sized diet as tolerated (3) Substance abuse: Code(s): F19.10 - Other psychoactive substance abuse, uncomplicated Status: Acute Assessment and Plan: * As stated per patient, methamphetamine use with last use 2 weeks ago. Denies alcohol or other drug use. * Urine drug screen positive for opiates and cannabinoids, amphetamine screen negative consistent with patient's report of last use over 2 weeks prior * Denies withdrawal symptoms today * CIWA elevated on presentation, improved at this time. Most recent CIWA score of 7 * Continue with Ativan as needed for withdrawal symptoms, PO Librium ordered if patient is able to swallow (4) Alkaline phosphatase elevation: Code(s): R74.8 - Abnormal levels of other serum enzymes Status: Acute Assessment and Plan: * Mild elevation of alk-phos, previously within normal limits * AST and ALT are within normal limits * Continue to trend Plan Will begin bowel regimen for constipation Subjective Date/time seen: 07/31/23 09:41 Interval history: Date of service: 07/31/2023 Mr. Cameron is doing well today. He underwent I&D of left abscess yesterday. He tolerated this procedure well. Today he endorses 4-5/10 pain in his lip and chin. He complains of significant swelling of the lip and has noticed some swelling in his maxillary region and nose as well. Reports he woke up drenched in sweat. Denies fevers or chills. He is having significant pain with eating or drinking and is not able to tolerate much p.o. intake. His packing became removed overnight. He denies any withdrawal symptoms including anxiety, agitation, hallucinations. Cannot recall when last bowel movement was but states it has been a while and endorses constipation Review of Systems
--- NOTE | 2023-07-31 09:41 | PM.IMPN ---
Progress Note: A&P Assessment and Plan (1) Sepsis: Qualifiers: Sepsis acute organ dysfunction status: without acute organ dysfunction Sepsis type: sepsis due to unspecified organism Qualified Code(s): A41.9 - Sepsis, unspecified organism Code(s): A41.9 - Sepsis, unspecified organism Status: Acute Assessment and Plan: On admission patient meets sepsis criteria with tachycardia, leukocytosis of 22.1 with elevated absolute neutrophils, and evidence of documented site of infection Continue with IV vancomycin Zosyn while awaiting culture results Continue gentle IV fluids until better tolerating p.o. intake Blood cultures are pending, negative to date WBC improved to 16.7 today He is afebrile with mild tachycardia (2) Abscess of skin or subcutaneous tissue: Qualifiers: Site of cutaneous abscess: face Qualified Code(s): L02.01 - Cutaneous abscess of face Code(s): L02.91 - Cutaneous abscess, unspecified Status: Inactive Assessment and Plan: Etiology possibly due to extensive dental disease, poor dentition, ingrown hair, skin picking Underwent incision and drainage of lower lip abscess on 07/30/[address] Collins. He tolerated this procedure well Packing became removed from the external wound overnight; appreciate input from Dr. Collins regarding wound care recommendations Abscess culture with preliminary growth of Staph aureus; await final culture results. Continue IV antibiotics as above Intraoperative cultures collected are pending at this time Continue mouth rinses with chlorhexidine gluconate. Continue analgesics as needed for pain control CRP is elevated, increased to 35.8 today. Continue to trend Continue soft and bite sized diet as tolerated (3) Substance abuse: Code(s): F19.10 - Other psychoactive substance abuse, uncomplicated Status: Acute Assessment and Plan: As stated per patient, methamphetamine use with last use 2 weeks ago. Denies alcohol or other drug use. Urine drug screen positive for opiates and cannabinoids, amphetamine screen negative consistent with patient's report of last use over 2 weeks prior Denies withdrawal symptoms today CIWA elevated on presentation, improved at this time. Most recent CIWA score of 7 Continue with Ativan as needed for withdrawal symptoms, PO Librium ordered if patient is able to swallow (4) Alkaline phosphatase elevation: Code(s): R74.8 - Abnormal levels of other serum enzymes Status: Acute Assessment and Plan: Mild elevation of alk-phos, previously within normal limits AST and ALT are within normal limits Continue to trend Plan Will begin bowel regimen for constipation Subjective Date/time seen: 07/31/23 09:41 Interval history: Date of service: 07/31/2023 Mr. Camreon is doing well today. He underwent I&D of left abscess yesterday. He tolerated this procedure well. Today he endorses 4-5/10 pain in his lip and chin. He complains of significant swelling of the lip and has noticed some swelling in his maxillary region and nose as well. Reports he woke up drenched in sweat. Denies fevers or chills. He is having significant pain with eating or drinking and is not able to tolerate much p.o. intake. His packing became removed overnight. He denies any withdrawal symptoms including anxiety, agitation, hallucinations. Cannot recall when last bowel movement was but states it has been a while and endorses constipation Review of Systems Review of Systems: All systems reviewed & are unremarkable except as noted in HPI and below Exam Narrative: General: Well-nourished well-appearing 38-year-old male, supine in bed, comfortable, NARD Neuro: awake, alert and oriented x4, speech clear, no focal neuro deficits noted HEENMT: normocephalic, atraumatic, EOMI, sclerae anicteric, lower lip is diffusely edematous with drainage of gomez, purulent mater
[2023-07-31] MEDS: polyethylene glycoL 3350 17 GM POWD.PACK PO (11:06)
[2023-07-31] MEDS: HYDROcodone/acetaminophen (*CRX) 7.5-325 MG TABLET 1 TAB PO (15:54)
[2023-07-31] MEDS: DOCUSATE SODIUM 100 MG CAPSULE PO (20:43)
[2023-07-31] MEDS: MORPHINE SULFATE (*CRX) 2 MG/ML INJ 1 MG IV PUSH (20:44)
[2023-08-01] VITALS: BP 109/72; PULSE 92; RESP 20; TEMP 37.2; O2SAT 98
[2023-08-01] MEDS: PIPERACILLN/TAZ 3.375GM/NS50ML 3.375 GM/50 ML BAG IVPB ×4 (01:46→17:51)
[2023-08-01] MEDS: SODIUM CHLORIDE 0.9% IV 1,000 ML 100 ML IV CONT (01:46)
[2023-08-01 04:00] VITALS: BP 120/81; PULSE 104; RESP 20; TEMP 36.9; O2SAT 95
[2023-08-01] MEDS: HYDROcodone/acetaminophen (*CRX) 7.5-325 MG TABLET 1 TAB PO (04:30)
[2023-08-01 06:45] LABS: Hematocrit 36.9 % (42.0-52.0); Hemoglobin 12.1 g/dL (14.0-18.0); Mean Corpuscular HGB Conc 32.8 g/dl (32-36); Mean Corpuscular Hemoglobin 30.6 pg (26-34); Mean Corpuscular Volume 93.4 fl (80-100); Mean Platelet Volume 8.6 fl (7.4-10.4); Platelet Count Result 367 k/mm3 (150-375); Red Blood Count 3.95 M/mm3 (4.6-6.20); Red Cell Distribution Width 12.8 % (11.5-14.5); White Blood Count 11.7 K/mm3 (4.5-10.0)
[2023-08-01 06:58] LABS: Alkaline Phosphatase 182 U/L (38-126)
[2023-08-01 07:01] LABS: Anion Gap 11 mmol/L (8-16); Blood Urea Nitrogen 7 mg/dL (9-20); Carbon Dioxide 27 mmol/L (22-30); Chloride 102 mmol/L (98-107); Estimated CRCL calculation 115 ml/min; Estimated Glomerular Filt Rate > 60; Glucose 125 mg/dL (65-110); Potassium 3.6 mmol/L (3.4-5.0); Sodium 140 mmol/L (137-145)
[2023-08-01 07:12] LABS: CRP 20.8 mg/dL (<1.0)
[2023-08-01 08:00] VITALS: BP 130/84; PULSE 85; RESP 16; TEMP 36.9; O2SAT 95
--- NOTE | 2023-08-01 09:10 | P.PNIM_ITS ---
Progress Note: A&P Assessment and Plan (1) Sepsis: Qualifiers: Sepsis acute organ dysfunction status: without acute organ dysfunction Sepsis type: sepsis due to unspecified organism Qualified Code(s): A41.9 - S epsis, unspecified organism Code(s): A41.9 - Sepsis, unspecified organism Status: Acute Assessment and Plan: 07/31/23: * On admission patient meets sepsis criteria with tachycardia, leukocytosis of 22.1 with elevated absolute neutrophils, and evidence of documented site of infection * Continue with IV vancomycin Zosyn while awaiting culture results * Continue gentle IV fluids until better tolerating p.o. intake * Blood cultures are pending, negative to date * WBC improved to 16.7 today * He is afebrile with mild tachycardia 08/01/23: * White blood cell count down to 11.7, heart rate 85-92, he is afebrile, and his blood pressures are well controlled. * Continue with IV vancomycin and Zosyn while awaiting culture sensitivities * 1/2 blood cultures revealing MRSA on preliminary with the other while reading no growth * Abscess culture on 07/29/2023 showing MRSA on the final read * Abscess culture on 07/30/2023 showing staphylococcus aureus on preliminary * Will discontinue IV fluids today. (2) Abscess of skin or subcutaneous tissue: Qualifiers: Site of cutaneous abscess: face Qualified Code(s): L02.01 - Cutaneous abscess of face Code(s): L02.91 - Cutaneous abscess, unspecified Status: Inactive Assessment and Plan: 07/31/23: * Etiology possibly due to extensive dental disease, poor dentition, ingrown hair, skin picking * Underwent incision and drainage of lower lip abscess on 07/30/[address] Collins. He tolerated this procedure well * Packing became removed from the external wound overnight; appreciate input from Dr. Collins regarding wound care recommendations * Abscess culture with preliminary growth of Staph aureus; await final culture results. Continue IV antibiotics as above * Intraoperative cultures collected are pending at this time * Continue mouth rinses with chlorhexidine gluconate. * Continue analgesics as needed for pain control * CRP is elevated, increased to 35.8 today. Continue to trend * Continue soft and bite sized diet as tolerated 08/01/23: * Alk-phos 182, C reactive protein 20.8 * Continue with current plan of care * Awaiting final culture reads * Continue with vancomycin Zosyn IV for now * Continue with pain control * Continue with mouth) with chlorhexidine (3) Substance abuse: Code(s): F19.10 - Other psychoactive substance abuse, uncomplicated Status: Acute Assessment and Plan: 07/31/23: * As stated per patient, methamphetamine use with last use 2 weeks ago. Denies alcohol or other drug use. * Urine drug screen positive for opiates and cannabinoids, amphetamine screen negative consistent with patient's report of last use over 2 weeks prior * Denies withdrawal symptoms today * CIWA elevated on presentation, improved at this time. Most recent CIWA score of 7 * Continue with Ativan as needed for withdrawal symptoms, PO Librium ordered if patient is able to swallow 08/01/23: * Patient denies any withdrawal symptoms * Continue to monitor CIWA per protocol (4) Alkaline phosphatase elevation: Code(s): R74.8 - Abnormal levels of other serum enzymes Status: Acute Assessment and Plan: 07/31/23: * Mild elevation of alk-phos, previously within normal limits * AST and ALT are within normal limits * Continue to trend
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
[2023-08-01] MEDS: polyethylene glycoL 3350 17 GM POWD.PACK PO (09:32)
[2023-08-01] MEDS: DOCUSATE SODIUM 100 MG CAPSULE PO ×2 (09:32→21:08)
[2023-08-01] MEDS: THIAMINE HCL 200 MG/2 ML VIAL 100 MG IV PUSH (09:32)
[2023-08-01] MEDS: CHLORHEXIDINE GLUCONATE 0.12% ORAL RINSE 473 ML BTL (*BKC) 15 ML SWISH/SPIT ×2 (09:38→17:52)
--- NOTE | 2023-08-01 10:02 | WPDANESPN ---
Anes - Prog Note Post-Op Date/Time: 08/01/23 10:02 Cardiovascular status: normal Respiratory status: normal Airway patency: baseline Mental status: baseline Post-Op hydration status: normal Vital Signs: Last Vital Signs Temp 98.5 F 08/01/23 08:00 Pulse 85 08/01/23 08:00 Resp 16 08/01/23 08:00 BP 130/84 08/01/23 08:00 Pulse Ox 95 08/01/23 08:00 O2 Del Method Room Air 07/31/23 20:00 O2 Flow Rate 8 07/30/23 15:21 Pain Score (VAS): 2 I/O: Intake & Output 07/31/23 08/01/23 08/01/23 23:59 07:59 15:59 Intake Total 50 2050 Output Total 450 525 Balance -400 1525 Laboratory Tests 08/01/23 06:31 08/01/23 06:31 08/01/23 06:31 WBC 11.7 H RBC 3.95 L Hgb 12.1 L Hct 36.9 L MCV 93.4 MCH 30.6 MCHC 32.8 RDW 12.8 Plt Count 367 MPV 8.6 Sodium 140 Potassium 3.6 Chloride 102 Carbon Dioxide 27 Anion Gap 11 BUN 7 L Creatinine 0.80 Estim Creat Clear Calc 115 Estimated GFR > 60 Glucose 125 H Calcium 9.0 Alkaline Phosphatase 182 H C-Reactive Protein 20.8 H Microbiology 07/29/23 18:06 Abscess Wound Culture - Final Methicillin Resis Staph Aureus 07/30/23 15:00 Abscess Anaerobic Culture - Preliminary 07/30/23 15:00 Abscess Aerobic Culture - Preliminary Staphylococcus aureus 07/29/23 17:31 Blood Blood Culture - Preliminary Methicillin Resis Staph Aureus Post-procedural complaints: none Patient Feedback: Patient satisfied with anesthetic care.
[2023-08-01 12:00] VITALS: BP 126/90; PULSE 92; RESP 18; TEMP 36.3; O2SAT 97
[2023-08-01] MEDS: NICOTINE (*PBKC) 21 MG PATCH 1 PATCH TRANSDERM (13:45)
[2023-08-01] MEDS: NICOTINE (*PBKC) 4 MG GUM PO (13:48)
[2023-08-01 16:00] VITALS: BP 123/91; PULSE 99; RESP 16; TEMP 36.3; O2SAT 98
[2023-08-01 20:18] LABS: Vancomycin Trough 11.8 ug/mL (10.0-20.0)
[2023-08-01 22:00] VITALS: BP 119/82; PULSE 110; RESP 16; TEMP 36.2; O2SAT 99
[2023-08-02] MEDS: HYDROcodone/acetaminophen (*CRX) 5-325 MG TABLET 1 TAB PO (00:10)
[2023-08-02] MEDS: PIPERACILLN/TAZ 3.375GM/NS50ML 3.375 GM/50 ML BAG IVPB ×2 (00:11→06:10)
[2023-08-02 06:00] VITALS: BP 127/77; PULSE 78; RESP 16; TEMP 36.3; O2SAT 98
--- NOTE | 2023-08-02 07:44 | P.PNIM_ITS ---
Progress Note: A&P Assessment and Plan (1) Sepsis: Qualifiers: Sepsis acute organ dysfunction status: without acute organ dysfunction Sepsis type: sepsis due to unspecified organism Qualified Code(s): A41.9 - S epsis, unspecified organism Code(s): A41.9 - Sepsis, unspecified organism Status: Acute Assessment and Plan: 07/31/23: * On admission patient meets sepsis criteria with tachycardia, leukocytosis of 22.1 with elevated absolute neutrophils, and evidence of documented site of infection * Continue with IV vancomycin Zosyn while awaiting culture results * Continue gentle IV fluids until better tolerating p.o. intake * Blood cultures are pending, negative to date * WBC improved to 16.7 today * He is afebrile with mild tachycardia 08/01/23: * White blood cell count down to 11.7, heart rate 85-92, he is afebrile, and his blood pressures are well controlled. * Continue with IV vancomycin and Zosyn while awaiting culture sensitivities * 1/2 blood cultures revealing MRSA on preliminary with the other while reading no growth * Abscess culture on 07/29/2023 showing MRSA on the final read * Abscess culture on 07/30/2023 showing staphylococcus aureus on preliminary * Will discontinue IV fluids today. 08/02/23: * White blood cell count 11.1, he is afebrile * We discontinued Zosyn today as his wound cultures came back MRSA on the final read * A still has 1/2 blood cultures showing MRSA in the blood * We will obtain another set of blood cultures today. * Continue with IV vancomycin * Antibiotic coverage discussed with infectious disease pharmacist (2) Abscess of skin or subcutaneous tissue: Qualifiers: Site of cutaneous abscess: face Qualified Code(s): L02.01 - Cutaneous abscess of face Code(s): L02.91 - Cutaneous abscess, unspecified Status: Inactive Assessment and Plan: 07/31/23: * Etiology possibly due to extensive dental disease, poor dentition, ingrown hair, skin picking * Underwent incision and drainage of lower lip abscess on 07/30/[address] Collins. He tolerated this procedure well * Packing became removed from the external wound overnight; appreciate input from Dr. Collins regarding wound care recommendations * Abscess culture with preliminary growth of Staph aureus; await final culture results. Continue IV antibiotics as above * Intraoperative cultures collected are pending at this time * Continue mouth rinses with chlorhexidine gluconate. * Continue analgesics as needed for pain control * CRP is elevated, increased to 35.8 today. Continue to trend * Continue soft and bite sized diet as tolerated 08/01/23: * Alk-phos 182, C reactive protein 20.8 * Continue with current plan of care * Awaiting final culture reads * Continue with vancomycin Zosyn IV for now * Continue with pain control * Continue with mouth) with chlorhexidine 08/02/23: * Alk-phos down to 168 * Final wound cultures showing MRSA along with 1/2 vials showing MRSA in blood * Will repeat blood cultures today * Discontinue Zosyn * Continue IV vancomycin * Continue with pain control * Continue with chlorhexidine mouthwashes (3) Substance abuse: Code(s): F19.10 - Other psychoactive substance abuse, uncomplicated Status: Acute Assessment and Plan: 07/31/23: * As stated per patient, methamphetamine use with last use 2 weeks ago. Denies alcohol or other drug use. * Urine drug screen positive for opiates and cannabinoids, amphetamine screen negative consistent with patient's report of last use over 2 weeks prior
--- NOTE | 2023-08-02 07:44 | PM.IMPN ---
Progress Note: A&P Assessment and Plan (1) Sepsis: Qualifiers: Sepsis acute organ dysfunction status: without acute organ dysfunction Sepsis type: sepsis due to unspecified organism Qualified Code(s): A41.9 - Sepsis, unspecified organism Code(s): A41.9 - Sepsis, unspecified organism Status: Acute Assessment and Plan: 07/31/23: On admission patient meets sepsis criteria with tachycardia, leukocytosis of 22.1 with elevated absolute neutrophils, and evidence of documented site of infection Continue with IV vancomycin Zosyn while awaiting culture results Continue gentle IV fluids until better tolerating p.o. intake Blood cultures are pending, negative to date WBC improved to 16.7 today He is afebrile with mild tachycardia 08/01/23: White blood cell count down to 11.7, heart rate 85-92, he is afebrile, and his blood pressures are well controlled. Continue with IV vancomycin and Zosyn while awaiting culture sensitivities 1/2 blood cultures revealing MRSA on preliminary with the other while reading no growth Abscess culture on 07/29/2023 showing MRSA on the final read Abscess culture on 07/30/2023 showing staphylococcus aureus on preliminary Will discontinue IV fluids today. 08/02/23: White blood cell count 11.1, he is afebrile We discontinued Zosyn today as his wound cultures came back MRSA on the final read A still has 1/2 blood cultures showing MRSA in the blood We will obtain another set of blood cultures today. Continue with IV vancomycin Antibiotic coverage discussed with infectious disease pharmacist (2) Abscess of skin or subcutaneous tissue: Qualifiers: Site of cutaneous abscess: face Qualified Code(s): L02.01 - Cutaneous abscess of face Code(s): L02.91 - Cutaneous abscess, unspecified Status: Inactive Assessment and Plan: 07/31/23: Etiology possibly due to extensive dental disease, poor dentition, ingrown hair, skin picking Underwent incision and drainage of lower lip abscess on 07/30/[address] Collins. He tolerated this procedure well Packing became removed from the external wound overnight; appreciate input from Dr. Collins regarding wound care recommendations Abscess culture with preliminary growth of Staph aureus; await final culture results. Continue IV antibiotics as above Intraoperative cultures collected are pending at this time Continue mouth rinses with chlorhexidine gluconate. Continue analgesics as needed for pain control CRP is elevated, increased to 35.8 today. Continue to trend Continue soft and bite sized diet as tolerated 08/01/23: Alk-phos 182, C reactive protein 20.8 Continue with current plan of care Awaiting final culture reads Continue with vancomycin Zosyn IV for now Continue with pain control Continue with mouth) with chlorhexidine 08/02/23: Alk-phos down to 168 Final wound cultures showing MRSA along with 1/2 vials showing MRSA in blood Will repeat blood cultures today Discontinue Zosyn Continue IV vancomycin Continue with pain control Continue with chlorhexidine mouthwashes (3) Substance abuse: Code(s): F19.10 - Other psychoactive substance abuse, uncomplicated Status: Acute Assessment and Plan: 07/31/23: As stated per patient, methamphetamine use with last use 2 weeks ago. Denies alcohol or other drug use. Urine drug screen positive for opiates and cannabinoids, amphetamine screen negative consistent with patient's report of last use over 2 weeks prior Denies withdrawal symptoms today CIWA elevated on presentation, improved at this time. Most recent CIWA score of 7 Continue with Ativan as needed for withdrawal symptoms, PO Librium ordered if patient is able to swallow 08/01/23: Patient denies any withdrawal symptoms Continue to monitor CIWA per protocol 08/02/23: Patient not displaying any signs of withdrawal CIWA discontinue Resolved (4) Alk
[2023-08-02 08:08] LABS: Estimated CRCL calculation 103 ml/min; Estimated Glomerular Filt Rate > 60
[2023-08-02] MEDS: CHLORHEXIDINE GLUCONATE 0.12% ORAL RINSE 473 ML BTL (*BKC) 15 ML SWISH/SPIT (09:15)
[2023-08-02] MEDS: NICOTINE (*PBKC) 21 MG PATCH 1 PATCH TRANSDERM (09:22)
[2023-08-02] MEDS: THIAMINE HCL 200 MG/2 ML VIAL 100 MG IV PUSH (09:22)
[2023-08-02 09:26] LABS: Basophils Absolute Auto 0.1 K/mm3 (0.0-0.1); Basophils Percent Auto 0.9 % (0.2-1.2); Eosinophils Absolute Auto 0.6 K/mm3 (0-0.3); Eosinophils Percent Auto 5.2 % (0-4.4); Hematocrit 37.9 % (42.0-52.0); Hemoglobin 12.4 g/dL (14.0-18.0); Immature Granulocyte Absolute 0.27 K/mm3 (0.00-0.031); Immature Granulocyte Percent A 2.4 % (0-0.5); Lymphocytes Percent Auto 16.3 % (18.3-44.2); Mean Corpuscular HGB Conc 32.7 g/dl (32-36); Mean Corpuscular Hemoglobin 30.8 pg (26-34); Mean Platelet Volume 8.9 fl (7.4-10.4); Monocytes Absolute Auto 1.4 K/mm3 (0.1-0.6); Monocytes Percent Auto 12.2 % (2.6-8.5); Platelet Count Result 434 k/mm3 (150-375); Red Blood Count 4.03 M/mm3 (4.6-6.20); Red Cell Distribution Width 13.2 % (11.5-14.5); White Blood Count 11.1 K/mm3 (4.5-10.0)
[2023-08-02 09:34] LABS: Alanine Aminotransferase 64 U/L (6-50); Albumin Level 3.7 g/dL (3.5-5.1); Alkaline Phosphatase 168 U/L (38-126); Anion Gap 7 mmol/L (8-16); Aspartate Amino Transferase 37 U/L (17-59); Blood Urea Nitrogen 8 mg/dL (9-20); Calcium 9.5 mg/dL (8.4-10.2); Carbon Dioxide 33 mmol/L (22-30); Chloride 101 mmol/L (98-107); Estimated CRCL calculation 93 ml/min; Estimated Glomerular Filt Rate > 60; Glucose 183 mg/dL (65-110); Potassium 3.8 mmol/L (3.4-5.0); Sodium 141 mmol/L (137-145)
== END 2023-08-02 12:00 | disposition left against medical advice (07) | DRG 710 ==
LOC: ANHED 18:17 → ANH3MEDSUR 21:32
PROVIDERS: Internal Medicine; Internal Medicine Critical Care Medicine; Physician Assistant; Plastic Surgery; Admitting Provider Student in an Organized Health Care Education/Training Program; Emergency Provider Physician Assistant; Visit Provider Nurse Practitioner Acute Care
PROC: 0C910ZZ Drainage of Lower Lip, Open Approach (ICD-10-PCS; principal; 2023-07-30 14:30)
DX: A41.02 Sepsis due to Methicillin resistant Staphylococcus aureus (principal); F15.10 Other stimulant abuse, uncomplicated; K13.0 Diseases of lips; L03.211 Cellulitis of face; K08.9 Disorder of teeth and supporting structures, unspecified; R74.8 Abnormal levels of other serum enzymes; F17.210 Nicotine dependence, cigarettes, uncomplicated; B95.62 Methicillin resistant Staphylococcus aureus infection as the cause of diseases classified elsewhere
CPT/HCPCS: 36415; 70487; 80048; 80053; 80202; 80307; 82565; 82948; 83605; 84075; 85025; 85027; 86140; 87040; 87070; 87075; 87147; 87181; 87186; 87205; 96361; 96365; 96366; 96367; 96374; 96375; 99285; A4248; A9270; G0378; J0330; J1170; J2060; J2270; J2405; J2543; J2704; J3010; J3370; J3411; J7030; J7120; Q9967

== ENCOUNTER 2023-08-03 10:22 | Observation (INO) | payer OTHER, SELFPAY ==
[2023-08-03] VITALS (8 sets, daily range): BP systolic 121–132; BP diastolic 72–85; PULSE 86–113; RESP 16–20; TEMP 36.4–36.8; O2SAT 99–100; BMI 22.7
[2023-08-03 12:06] LABS: Basophils Absolute Auto 0.2 K/mm3 (0.0-0.1); Eosinophils Absolute Auto 0.6 K/mm3 (0-0.3); Eosinophils Percent Auto 4.2 % (0-4.4); Hematocrit 38.3 % (42.0-52.0); Hemoglobin 12.3 g/dL (14.0-18.0); Immature Granulocyte Absolute 0.57 K/mm3 (0.00-0.031); Immature Granulocyte Percent A 3.9 % (0-0.5); Lymphocytes Absolute Auto 2.51 K/mm3 (0.9-3.2); Lymphocytes Percent Auto 17.1 % (18.3-44.2); Mean Corpuscular HGB Conc 32.1 g/dl (32-36); Mean Corpuscular Hemoglobin 30.4 pg (26-34); Mean Corpuscular Volume 94.8 fl (80-100); Mean Platelet Volume 8.5 fl (7.4-10.4); Monocytes Absolute Auto 1.7 K/mm3 (0.1-0.6); Monocytes Percent Auto 11.6 % (2.6-8.5); Neutrophils Absolute Auto 9.2 K/mm3 (1.3-6.7); Neutrophils Percent Auto 62.2 % (45.5-73.1); Platelet Count Result 452 k/mm3 (150-375); Red Blood Count 4.04 M/mm3 (4.6-6.20); Red Cell Distribution Width 13.2 % (11.5-14.5); White Blood Count 14.7 K/mm3 (4.5-10.0)
--- NOTE | 2023-08-03 12:09 | ED.GENADULT ---
HPI - General Adult General Chief complaint: Skin/Abscess/Foreign Body Stated complaint: MRSA, WANTS READMISSION Time Seen by Provider: 08/03/23 11:34 History of Present Illness HPI narrative: 38-year-old male presenting to the ED for evaluation after leaving AMA. Patient does have a MRSA abscess on his lip and patient did have positive blood cultures. Patient had Blood cultures that showed MRSA and patient has been on vanc while hospitalized. Patient left the hospital AMA yesterday, patient was not discharged home on antibiotics. patient returned to the emergency department today for treatment. Related Data Home Medications Medication Instructions Recorded Confirmed No Home Medications 08/03/23 08/03/23 Allergies Allergy/AdvReac Type Severity Reaction Status Date / Time No Known Allergies Allergy Verified 07/29/23 14:35 Review of Systems Review of Systems: All systems reviewed & are unremarkable except as noted in HPI and below PMFSH Past Medical History Medical History Substance abuse Social History Social History (Updated 08/03/23 @ 15:27 by Tamara Pascual APRN) Social History: Currently lives alone in his house. Surrogate Decision maker: Cathy Cameron, mom. Code Status: Full Code. Smoking packs per day: 3.5 Smoking cigarettes per day: 70.0 Years smoked: 20 Smoking pack-years: 70.00 Smoking status: Current every day smoker Tobacco type: cigarettes Alcohol intake: never Substance use: never Substance use type: amphetamines Lack of Transportation: YES Lack of Food: Never True Current Housing: I Have Housing Concerned About Future Housing: No Difficulty Paying Gas/Electric Bills: No Difficulty Paying for Meds: No Currently Unemployed: No Education: Grade School Difficulty w/ Childcare or Family Care: No Spiritual care concerns: No Exam Narrative: APPEARANCE: Well appearing, no pain, no distress, well-nourished. HEAD: normocephalic, atraumatic. EYES: PERRLA/EOMI, conjunctivae clear. NOSE: Normal no drainage EARS:TMS clear with good light reflex. THROAT: Pharynx clear, no exudate. NECK: Supple. No adenopathy, no masses. RESPIRATORY: Airway patent, respirations nonlabored. Clear to auscultation bilaterally, no rales, rhonchi, wheezing. CARDIOVASCULAR: Regular rate and rhythm without murmurs rubs or gallops. ABDOMINAL: Soft, nontender, nondistended, normal bowel sounds MUSCULOSKELETAL: Moves all extremities. Strength/ROM intact, No edema, No calf tenderness. NEURO: Alert. Cranial nerves II through XII intact. grossly SKIN: facial swelling Course Course Emergency Course: 38-year-old male returning to the emergency department for treatment. Patient was afebrile but does have a leukocytosis of 14.7 hemoglobin of 12.3. Patient does have an elevated CRP and ESR. Discussed case with the hospitalist and patient was accepted for readmission. Patient was started on vancomycin in the ED. Blood cultures were reordered. Patient was updated on the results of the workup and plan for admission. Patient was willing to stay this time. Vital Signs Vital signs: Vital Signs Temperature 98.3 F 08/03/23 10:29 Pulse Rate 113 H 08/03/23 10:29 Respiratory Rate 20 08/03/23 10:29 Blood Pressure 132/77 08/03/23 10:29 Pulse Oximetry 100 08/03/23 10:29 Oxygen Delivery Room Air 08/03/23 10:29 Temperature 97.6 F 08/03/23 14:31 Pulse Rate 90 08/03/23 14:31 Respiratory Rate 16 08/03/23 14:31 Blood Pressure 126/83 08/03/23 14:31 Pulse Oximetry 99 08/03/23 14:31 Oxygen Delivery Room Air 08/03/23 10:29 Medical Decision Making Differential Diagnosis Differential Diagnosis: Sepsis from cellulitis, abscess Vital Signs Vital Signs: Vital Signs Temperature 98.3 F 08/03/23 10:29 Pulse Rate 113 H 08/03/23 10:29 Respiratory Rate 20 08/03/23 10:29 Bloo
[2023-08-03 12:20] LABS: Alanine Aminotransferase 80 U/L (6-50); Alkaline Phosphatase 182 U/L (38-126); Anion Gap 10 mmol/L (8-16); Aspartate Amino Transferase 51 U/L (17-59); Bilirubin,Total 0.5 mg/dL (0.2-1.3); Blood Urea Nitrogen 11 mg/dL (9-20); CRP 5.7 mg/dL (<1.0); Calcium 9.3 mg/dL (8.4-10.2); Carbon Dioxide 33 mmol/L (22-30); Chloride 100 mmol/L (98-107); Estimated CRCL calculation 101 ml/min; Estimated Glomerular Filt Rate > 60; Glucose 122 mg/dL (65-110); Potassium 3.9 mmol/L (3.4-5.0); Sodium 143 mmol/L (137-145)
[2023-08-03] MEDS: SODIUM CHLORIDE 0.9% IV 1,000 ML 999 ML IV CONT (12:46)
[2023-08-03 12:48] LABS: Erythrocyte Sedimentation Rate 87 mm/hr (0-20)
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
--- NOTE | 2023-08-03 14:27 | ADMGEN ---
This patient, Blayne Cameron, was admitted to Medical Room 251-. Patient/family oriented to hospital policies and general routines including ID bracelet, bed and alarms, visiting hours, pain management, procedures, bathroom and other care routines, personal items, smoking policy, room service/diet, and visiting hours. Information on how to activate the Rapid Response Team has been discussed. Patient/Family are encouraged to report perceived risks to care and to ask questions if they do not understand what they are told or what they should do.
[2023-08-03 16:35] LABS: Amphetamine Screen Urine Negative (Negative); Barbiturate Screen Urine Negative (Negative); Benzodiazepines Screen Urine Positive (Negative); Cannabinoid Screen Urine Positive (Negative); Cocaine Screen Urine Negative (Negative); Methadone Screen Urine Negative (Negative); Opiate Screen Urine Negative (Negative); Phencyclidine Screen Urine Negative (Negative)
[2023-08-03] MEDS: MORPHINE SULFATE (*CRX) 2 MG/ML INJ IV PUSH (18:11)
[2023-08-03] MEDS: CHLORHEXIDINE GLUCONATE 0.12% ORAL RINSE 473 ML BTL (*BKC) 15 ML SWISH/SPIT (18:12)
[2023-08-04 05:49] VITALS: BP 123/87; PULSE 77; RESP 18; TEMP 36.8; O2SAT 98
[2023-08-04 06:13] LABS: Hematocrit 37.4 % (42.0-52.0); Hemoglobin 12.1 g/dL (14.0-18.0); Mean Corpuscular HGB Conc 32.4 g/dl (32-36); Mean Corpuscular Hemoglobin 30.3 pg (26-34); Mean Corpuscular Volume 93.7 fl (80-100); Mean Platelet Volume 8.5 fl (7.4-10.4); Platelet Count Result 451 k/mm3 (150-375); Red Blood Count 3.99 M/mm3 (4.6-6.20); Red Cell Distribution Width 13.2 % (11.5-14.5); White Blood Count 15.1 K/mm3 (4.5-10.0)
[2023-08-04 06:33] LABS: Anion Gap 12 mmol/L (8-16); Blood Urea Nitrogen 11 mg/dL (9-20); Carbon Dioxide 28 mmol/L (22-30); Chloride 101 mmol/L (98-107); Estimated CRCL calculation 113 ml/min; Estimated Glomerular Filt Rate > 60; Glucose 110 mg/dL (65-110); Potassium 3.7 mmol/L (3.4-5.0); Sodium 141 mmol/L (137-145)
[2023-08-04 07:16] LABS: Band Neutrophils Percent 2 % (0-6); Basophils Absolute Manual 0.15 K/mm3 (0.0-0.1); Basophils Percent Manual 1 % (0-1); Eosinophils Percent Manual 4 % (0-4); Lymphocytes Absolute Manual 1.96 K/mm3 (1.1-4.5); Metamyelocytes Percent 1 %; Monocytes Percent Manual 6 % (3-9); Myelocytes Percent 3 %; Neutrophils Absolute Manual 10.87 K/mm3 (1.3-6.7); Neutrophils Percent Manual 70 % (46-73); Platelet Estimate Increased (Adequate); Schistocytes None Seen (NORMAL); Total Cells Counted 100
[2023-08-04 07:17] LABS: Hypochromasia 1+ (NORMAL)
[2023-08-04 08:05] LABS: Erythrocyte Sedimentation Rate 92 mm/hr (0-20)
[2023-08-04] MEDS: CHLORHEXIDINE GLUCONATE 0.12% ORAL RINSE 473 ML BTL (*BKC) 15 ML SWISH/SPIT ×2 (10:08→18:01)
[2023-08-04] MEDS: ENOXAPARIN 40 MG/0.4 ML SYRINGE SUB-Q (10:08)
--- NOTE | 2023-08-04 13:36 | PM.IMPN ---
Progress Note: A&P Assessment and Plan (1) Abscess of lip: Code(s): K13.0 - Diseases of lips Status: Acute (2) Substance abuse: Code(s): F19.10 - Other psychoactive substance abuse, uncomplicated Status: Acute Plan Problem List 1. abscess of lip continue IV vancomycin BC set x2 pending, second set from 08/02 with no growth to date - awaiting final read. second drawn today, 08/03, and pending. consider transition to oral atb if swelling/appearance improving and BC negative for 48 hours restart mouth rinses with chlorhexidine gluconate Good oral hygiene recommended continue pain control continue regular diet, may transition to soft and bite sized if not tolerated WBC 15.1, trend. CPR 4.0, trend. 2. substance abuse UDS positive for benzodiazepines and marijuana on 07/30 Home Meds/Chronic Conditions - none Diet: Regular GI Prophylaxis: not currently indicated. DVT Prophylaxis: SCDs, Lovenox Lines: pIV Code Status: Full Code Time Spent With Patient Time with patient: 15 - 25 minutes Subjective Date/time seen: 08/04/23 0915 Review of Systems Review of Systems: All systems reviewed & are unremarkable except as noted in HPI and below Constitutional: Constitutional: Reports no additional constitutional complaints ENT: Comments: Patient erythema and dried drainage to mid bottom. Tenderness present. Exam Narrative: Upon asking patient was resting in James's position with his eyes closed but arouses easily to verbal stimuli and is oriented x4 Const: General: comfortable and no acute distress HENMT: Face/Nose/Sinus: Normal nares present Mouth: Yes dry mucous membranes and Yes Abnormal oral and palatal mucosa present Other: coalescing white plaque just left of midline to lower lip mucosa. Thick purulent discharge present. Surrounding erythema/swelling. dental carries throughout and overall poor dentition. Uvula is midline. No difficulty with swallowing or breathing Eyes: General: appearance normal, both eyes and all related structures Sclera: sclerae normal Pupils: Equal, round and reactive pupils present EOM: EOMs intact bilaterally Neck: Neck: supple Lymphatic: lymphadenopathy (anterior cervical/small shotty) Resp: Effort & Inspection: normal respiratory effort Auscultation: clear to auscultation bilaterally Cardio: Rate: regular rate Rhythm: regular rhythm Other: S1-S2 present without murmur, rub, ectopy GI: GI Palp: Yes Soft to palpation Auscultation: normal bowel sounds Skin: General skin exam: normal color and no rashes or lesions noted Wounds: no wounds Neuro: Cranial nerves: Yes Equal, round and reactive pupils present Speech: normal speech Motor exam (neuro): 5/5 motor strength present throughout Sensory Exam: normal sensation Other: A/Ox4 Extrem: General: normal to inspection Psych: Mental Status: mental status grossly normal Affect: normal affect Objective Data Vital Signs Vital Signs: Vital Signs - 24 hr 08/03/23 14:31 08/03/23 15:31 08/03/23 19:39 Temperature 97.6 F 97.7 F Pulse Rate 90 101 H Respiratory Rate 16 18 Blood Pressure 126/83 121/72 Pulse Oximetry 99 100 Oxygen Delivery Room Air 08/03/23 20:00 08/04/23 05:49 08/04/23 08:00 Temperature 98.3 F Pulse Rate 101 H 77 Respiratory Rate 18 18 Blood Pressure 123/87 Pulse Oximetry 100 98 Oxygen Delivery Room Air Room Air Intake/Output Intake/Output: Intake & Output 08/01/23 08/02/23 08/03/23 08/04/23 23:59 23:59 23:59 23:59 Intake Total 960 980 Output Total 500 200 Balance 460 780 Meds/Results Medications: Active Medications Generic Name Dose Route Start Last Admin Trade Name Freq PRN Reason Stop Dose Admin Acetaminophen 650 mg 08/03/23 15:58 Acetaminophen 325 Mg Tablet PO Q4H PRN Mild Pain (1-3) or Fever Hydrocodone Bitart/Acetaminophen 1 tab 08/03/23 15:58 Hydrocodone/Ac
[2023-08-04 14:45] VITALS: BP 140/85; PULSE 95; RESP 16; TEMP 37.4; O2SAT 100
[2023-08-04] MEDS: ACETAMINOPHEN 325 MG TABLET 650 MG PO (16:45)
[2023-08-04] MEDS: IBUPROFEN 600 MG TABLET PO (18:01)
[2023-08-04 19:23] VITALS: BP 126/73; PULSE 85; RESP 18; TEMP 36.2; O2SAT 100
[2023-08-04 20:00] VITALS: PULSE 85; RESP 18; O2SAT 100
[2023-08-05 00:50] LABS: Vancomycin Trough 9.8 ug/mL (10.0-20.0)
[2023-08-05] MEDS: HYDROcodone/acetaminophen (*CRX) 5-325 MG TABLET 1 TAB PO ×2 (03:36→08:19)
[2023-08-05 06:00] VITALS: BP 110/71; PULSE 72; RESP 18; TEMP 36.3; O2SAT 96
[2023-08-05] MEDS: ENOXAPARIN 40 MG/0.4 ML SYRINGE SUB-Q (08:20)
[2023-08-05] MEDS: CHLORHEXIDINE GLUCONATE 0.12% ORAL RINSE 473 ML BTL (*BKC) 15 ML SWISH/SPIT (08:22)
[2023-08-05 08:52] VITALS: O2SAT 94
[2023-08-05 09:38] LABS: Basophils Absolute Auto 0.1 K/mm3 (0.0-0.1); Basophils Percent Auto 0.8 % (0.2-1.2); Eosinophils Absolute Auto 0.4 K/mm3 (0-0.3); Eosinophils Percent Auto 2.6 % (0-4.4); Hematocrit 37.7 % (42.0-52.0); Hemoglobin 12.2 g/dL (14.0-18.0); Immature Granulocyte Absolute 0.52 K/mm3 (0.00-0.031); Immature Granulocyte Percent A 3.3 % (0-0.5); Lymphocytes Absolute Auto 2.27 K/mm3 (0.9-3.2); Lymphocytes Percent Auto 14.2 % (18.3-44.2); Mean Corpuscular HGB Conc 32.4 g/dl (32-36); Mean Corpuscular Hemoglobin 30.5 pg (26-34); Mean Corpuscular Volume 94.3 fl (80-100); Mean Platelet Volume 8.4 fl (7.4-10.4); Monocytes Absolute Auto 1.3 K/mm3 (0.1-0.6); Monocytes Percent Auto 8.2 % (2.6-8.5); Neutrophils Absolute Auto 11.3 K/mm3 (1.3-6.7); Neutrophils Percent Auto 70.9 % (45.5-73.1); Platelet Count Result 474 k/mm3 (150-375)
--- NOTE | 2023-08-05 12:35 | PM.IMPN ---
Progress Note: A&P Assessment and Plan (1) Abscess of lip: Code(s): K13.0 - Diseases of lips Status: Acute (2) Substance abuse: Code(s): F19.10 - Other psychoactive substance abuse, uncomplicated Status: Acute Plan Problem List 1. abscess of lip continue IV vancomycin BC set x2 pending, second set from 08/02 with no growth to date - awaiting final read. second drawn today, 08/03, and pending. restart mouth rinses with chlorhexidine gluconate Good oral hygiene recommended continue pain control continue regular diet, may transition to soft and bite sized if not tolerated WBC 15.1, trend. CPR 4.0, trend. MRSA bacteremia likely from lip abscess however we will r/o endocarditis ECHO ordered and cardiology consulted continue monitoring repeat blood culture 2. substance abuse UDS positive for benzodiazepines and marijuana on 07/30 Home Meds/Chronic Conditions - none Diet: Regular GI Prophylaxis: not currently indicated. DVT Prophylaxis: SCDs, Lovenox Lines: pIV Code Status: Full Code Subjective Date/time seen: 08/05/23 12:35 Interval history: Patient comfortable at bedside Review of Systems Review of Systems: All systems reviewed & are unremarkable except as noted in HPI and below Constitutional: Constitutional: Reports no additional constitutional complaints Exam Narrative: Upon asking patient was resting in James's position with his eyes closed but arouses easily to verbal stimuli and is oriented x4 Const: General: comfortable and no acute distress HENMT: Face/Nose/Sinus: Normal nares present Mouth: Yes dry mucous membranes and Yes Abnormal oral and palatal mucosa present Other: coalescing white plaque just left of midline to lower lip mucosa. Thick purulent discharge present. Surrounding erythema/swelling. dental carries throughout and overall poor dentition. Uvula is midline. No difficulty with swallowing or breathing Eyes: General: appearance normal, both eyes and all related structures Sclera: sclerae normal Pupils: Equal, round and reactive pupils present EOM: EOMs intact bilaterally Neck: Neck: supple Lymphatic: lymphadenopathy (anterior cervical/small shotty) Resp: Effort & Inspection: normal respiratory effort Auscultation: clear to auscultation bilaterally Cardio: Rate: regular rate Rhythm: regular rhythm Other: S1-S2 present without murmur, rub, ectopy GI: Auscultation: normal bowel sounds Skin: General skin exam: normal color and no rashes or lesions noted Wounds: no wounds Neuro: Cranial nerves: Yes Equal, round and reactive pupils present Speech: normal speech Motor exam (neuro): 5/5 motor strength present throughout Sensory Exam: normal sensation Other: A/Ox4 Extrem: General: normal to inspection Psych: Mental Status: mental status grossly normal Affect: normal affect Objective Data Vital Signs Vital Signs: Vital Signs - 24 hr 08/04/23 14:45 08/04/23 19:23 08/04/23 20:00 Temperature 99.4 F 97.2 F L Pulse Rate 95 85 85 Respiratory Rate 16 18 18 Blood Pressure 140/85 126/73 Pulse Oximetry 100 100 100 Oxygen Delivery Room Air 08/05/23 06:00 08/05/23 08:52 08/05/23 08:20 Temperature 97.4 F L Pulse Rate 72 Respiratory Rate 18 Blood Pressure 110/71 Pulse Oximetry 96 94 Oxygen Delivery Room Air Room Air Intake/Output Intake/Output: Intake & Output 08/02/23 08/03/23 08/04/23 08/05/23 23:59 23:59 23:59 23:59 Intake Total 960 1880 240 Output Total 500 550 390 Balance 460 1330 -150 Meds/Results Medications: Active Medications Generic Name Dose Route Start Last Admin Trade Name Freq PRN Reason Stop Dose Admin Acetaminophen 650 mg 08/03/23 15:58 08/04/23 16:45 Acetaminophen 325 Mg Tablet PO 650 mg Q4H PRN Administration Mild Pain (1-3) or Fever Hydrocodone Bitart/Acetaminophen 1 tab 08/03/23 15:58 08/05/23 08:19 Hydrocodone/Acetamino
--- NOTE | 2023-08-05 13:53 | PM.CNCAR ---
Assessment and Plan Assessment and plan (1) Abscess of lip: Code(s): K13.0 - Diseases of lips Status: Acute Assessment and Plan: I discussed KEIRA with the patient, including indication for KEIRA, procedure details, risks vs benefits, etc. Patient states he wants to think about it because he really wants to go home today and we would not be able to do KEIRA today. If patient is agreeable to KEIRA, then we would be able to do it Wednesday, 08/06. Patient would have to be NPO at midnight. Patient will let us know his decision. History of Present Illness History of Present Illness Consult date/time: 08/05/23 13:53 Requesting physician: Camilo Elizondo MD Consult reason: Other (KEIRA) Reason For Visit: positive blood culture,mrsa Narrative: We are consulted for transesophageal echocardiogram. This is a 38 year old male with substance abuse who is admitted with cellulitis of the lip. Blood cultures from 07/29 and 07/30 show MRSA. Blood cultures from 08/02 and 08/03 are negative. We have been requested for KEIRA to rule out infective endocarditis. Patient denies any swallowing issues, no issues with movement of his jaw, no chest pain, shortness of breath or other cardiac symptoms. Review of Systems Review of Systems: All systems reviewed & are unremarkable except as noted in HPI and below (HPI) PMFSH Past Medical History Medical History Substance abuse Social History Social History Social History: Currently lives alone in his house. Surrogate Decision maker: Cathy Whiteheadler, mom. Code Status: Full Code. Smoking packs per day: 3.5 Smoking cigarettes per day: 70.0 Years smoked: 20 Smoking pack-years: 70.00 Smoking status: Current every day smoker Tobacco type: cigarettes Alcohol intake: never Substance use: never Substance use type: amphetamines Lack of Transportation: YES Lack of Food: Never True Current Housing: I Have Housing Concerned About Future Housing: No Difficulty Paying Gas/Electric Bills: No Difficulty Paying for Meds: No Currently Unemployed: No Education: Grade School Difficulty w/ Childcare or Family Care: No Spiritual care concerns: No Meds Home Medications and Allergies Home Medications Medication Instructions Recorded Confirmed Type No Home Medications 08/03/23 08/03/23 History Allergies Allergy/AdvReac Type Severity Reaction Status Date / Time No Known Allergies Allergy Verified 07/29/23 14:35 Vital Signs Vital Signs - 24 hr 08/04/23 14:45 08/04/23 19:23 08/04/23 20:00 Temperature 37.4 C 36.2 C L Pulse Rate 95 85 85 Respiratory Rate 16 18 18 Blood Pressure 140/85 126/73 Pulse Oximetry 100 100 100 Oxygen Delivery Room Air 08/05/23 06:00 08/05/23 08:52 08/05/23 08:20 Temperature 36.3 C L Pulse Rate 72 Respiratory Rate 18 Blood Pressure 110/71 Pulse Oximetry 96 94 Oxygen Delivery Room Air Room Air Exam Const: General: comfortable and no acute distress Eyes: General: appearance normal, both eyes and all related structures Sclera: sclerae normal Resp: Effort & Inspection: normal respiratory effort Cardio: Rate: regular rate Rhythm: regular rhythm Skin: General skin exam: normal color Neuro: Speech: normal speech Psych: Mental Status: mental status grossly normal Affect: normal affect Results Labs and Meds 08/05/23 09:10 08/04/23 05:52 Lab results: CBC 08/05/23 Range/Units 09:10 WBC 16.0 H (4.5-10.0) K/mm3 RBC 4.00 L (4.6-6.20) M/mm3 Hgb 12.2 L (14.0-18.0) g/dL Hct 37.7 L (42.0-52.0) % Plt Count 474 H (150-375) k/mm3 Lymph # (Auto) 2.27 (0.9-3.2) K/mm3 Emanuel # (Auto) 1.3 H (0.1-0.6) K/mm3 Eos # (Auto) 0.4 H (0-0.3) K/mm3 Baso # (Auto) 0.1 (0.0-0.1) K/mm3 Intake and Output 08/04/23 08/05/23 08/05/23 23:59 07:59 15:59
[2023-08-05 14:16] VITALS: BP 119/74; PULSE 93; RESP 16; TEMP 36.4; O2SAT 100
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
== END 2023-08-05 15:00 | disposition left against medical advice (07) ==
LOC: ANHED 12:00 → ANH2MED 13:54
PROVIDERS: Internal Medicine; Student in an Organized Health Care Education/Training Program; Admitting Provider Internal Medicine; Emergency Provider Emergency Medicine; Visit Provider Internal Medicine
DX: R78.81 Bacteremia (principal); B95.62 Methicillin resistant Staphylococcus aureus infection as the cause of diseases classified elsewhere; K13.0 Diseases of lips; F15.10 Other stimulant abuse, uncomplicated; Z53.29 Procedure and treatment not carried out because of patient's decision for other reasons; D72.829 Elevated white blood cell count, unspecified; R70.0 Elevated erythrocyte sedimentation rate; R79.82 Elevated C-reactive protein (CRP); F17.210 Nicotine dependence, cigarettes, uncomplicated
CPT/HCPCS: 36415; 80048; 80053; 80202; 80307; 85025; 85652; 86140; 87040; 96365; 96366; 96372; 96375; 99285; A4248; A9270; G0378; G0379; J1650; J2270; J3370; J7030